=== PATIENT | male | born 1970 | race Asian ===

== ENCOUNTER 2018-05-31 19:50 | Emergency (ER) | payer MEDICAID ==
[~2018-05-31] VITALS: Ht 165.1 cm; Wt 67.0 kg
[2018-05-31 20:00] VITALS: BP 136/91
[2018-05-31] MEDS ORDERED: TETanus/Pertussis (Acell)/Diphther VAC/PF (Tdap-Adult) 0.5ml syringe IM ONE (21:30)
[2018-05-31] MEDS ORDERED: LIDOcaine 1.5% w/epinephrine 1:200,000 5ml ampul IJ ONE (21:30)
== END 2018-05-31 22:23 | disposition home or self-care (01) ==
LOC: ER 19:51
DX: S81.812A Laceration without foreign body, left lower leg, initial encounter (principal); W29.3XXA Contact with powered garden and outdoor hand tools and machinery, initial encounter; Y93.89 Activity, other specified; Y92.89 Other specified places as the place of occurrence of the external cause; Y99.8 Other external cause status
CPT/HCPCS: 90471; 90715; 99283; A6222; A6255; A6257; A6449